=== PATIENT | male | born 1945 | race Caucasian/White ===

== ENCOUNTER 2017-07-11 12:10 | Emergency (ER) | payer OTHER ==
[~2017-07-11] VITALS: Ht 182.9 cm; Wt 65.8 kg
[2017-07-11] MEDS ORDERED: KEFLEX500 MG PO (14:37)
[2017-07-11 14:45] VITALS: BP 132/74
[2017-07-11] MEDS ORDERED: NORVASC2.5 MG PO (20:57)
[2017-07-11] MEDS ORDERED: HYDROCHLOROTH12.5 M2 PO (20:57)
== END 2017-07-11 14:45 | disposition home or self-care (01) ==
LOC: ER 12:10
DX: L03.114 Cellulitis of left upper limb (principal)

== ENCOUNTER 2017-07-11 20:27 | Inpatient (IN) | payer OTHER ==
[~2017-07-11] VITALS: Ht 188 cm; Wt 73.7 kg
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
--- NOTE | ~2017-07-11 | HC ---
[facility] [place] [address] CONSULTATION Name: SUE DUPREE Room #: 362-P ADM IN M.R.#: [id number] Admission: 07/11/17 Attend Phys: Jaylen James MD Discharge: Date of : 49 Report #: [id number] THIS REPORT FOR: //name// CC: Jaylen James DATE OF SERVICE: 07/12/2017 CHIEF COMPLAINT: Swelling in the left hand. HISTORY OF PRESENT ILLNESS: The patient is a poor historian, but according to the H and P, he presented to the emergency room around noon yesterday for swelling in the left hand, was thought to have upym-my-taxawsrn cellulitis, given prescription for cephalexin and discharged to home. He returned to the emergency department later last night with the same complaint and worsening symptoms. At this point, he was accompanied by a female friend. At this point, he was felt to have more significant cellulitis and swelling of his left hand and was admitted. He has since been on IV vancomycin. The patient reports hand swelling, but not much pain. He is a very poor historian and is unable to report any recent injury to the left hand, but thinks that his hand has been swollen for about 3-4 days now. PAST MEDICAL HISTORY: Limited due to that he is a poor historian and task. Per H and P, history of a knee scope 20 years ago and hypertension. SOCIAL HISTORY: The patient drinks alcohol approximately 4-8 beers per day. He rarely drinks other forms of alcohol. Denies cigarette smoking or drug abuse. He is and is currently living in an apartment. ALLERGIES: No known drug allergies. MEDICATIONS: Please see medical record, but include hydrochlorothiazide, amlodipine, and vancomycin. PHYSICAL EXAMINATION: GENERAL: The patient is awake, currently in no acute distress. VITAL SIGNS: Temperature 36.5 degrees Celsius, blood pressure 129/76, and pulse rate 66. EXTREMITIES: Left upper extremity shows edema and erythema in the left hand, most noticeable in the dorsum of the hand. There is mild erythema extending into the forearm, but no significant edema in this area. The patient is unable to make a fist due to swelling in hand and fingers. There is tenderness to palpation over the dorsum of the left wrist. No tenderness to palpation of the fingers or palmar aspect of the wrist. There are 2 small abrasions on the dorsum of the hands that appeared to be healing well with no drainage noted from these. These small abrasions are 2-3 mm in length with no increased [place] [address] CONSULTATION Name: SUE DUPREE Room #: 362-P [facility] IN M.R.#: [id number] Admission: 07/11/17 Attend Phys: Jaylen James MD Discharge: Date of : 49 Report #: [id number] LABORATORY DATA: Hemoglobin 13.6. Sodium 135, potassium 3.3, glucose 116, albumin 3.0, ALT 21, and total bilirubin 1.4. IMPRESSION: 1. Cellulitis of the left hand. 2. Toxic encephalopathy with impaired recent memory. 3. History of hypertension, substantial alcohol use, severe malnutrition. 4. Hyponatremia, hypokalemia, and volume depletion. PLAN: Discussed with the patient that he appears to have cellulitis of the left hand; however, I did not notice any localized abscesses or fluid pockets based on examination. However, we have ordered x-rays of the left hand and if these are normal, we may obtain an MRI for further evaluation to rule out any localized abscesses that could require surgical drainage. At this point, we would continue with IV antibiotics per medicine team and we will await results of the x-rays and pending blood cultures. <ELECTRONICALLY SIGNED> By: ARLENE Reza 07/14/17 0833 [id number] ARLENE Reza /nt
--- NOTE | ~2017-07-11 | HC ---
[facility] [place] [address] CONSULTATION Name: SUE DUPREE Room #: 362-P [facility] IN M.R.#: [id number] Admission: 07/11/17 Attend Phys: Jaylen James MD Discharge: Date of : 49 Report #: [id number] THIS REPORT FOR: //name// CC: Jaylen James REASON FOR CONSULTATION: I was asked to evaluate concerning left hand and forearm soft tissue infection and cellulitis. HISTORY OF PRESENT ILLNESS: The patient is a 71-year-old who initially presented to the Emergency Room on 07/11/2017 with left hand pain, swelling with onset earlier in the morning. Having a significant amount of pain. Examination at that time showed erythema and small puncture wounds to the dorsum of his left hand, both on the dorsal surface and lateral aspect. He had good range of motion. Good perfusion distally. Was started on cephalexin and instructed to use ibuprofen and warm compresses to the hand. He returned 6 hours later with increased pain and redness. His girlfriend brought him back to the hospital. No documented fever, chills or sweats. Still is having a significant amount of pain and redness that went up to his forearm. No specific trauma had been reported. He was, however, the day before helping one of his friends' takedown some furniture. The patient does drink significantly. He was unable to give me a reasonable history. His significant other was able to add much insight into his condition. He does drink heavily and noticed a definite decline mentally over the last year or so. ALLERGIES: None known. MEDICATIONS: Hydrochlorothiazide, amlodipine. PAST MEDICAL HISTORY: Hypertension. SOCIAL HISTORY: Nonsmoker. Significant alcohol intake. He is retired from insurance sales; lives on his own in an apartment, does have children and a girlfriend that are available to assist. REVIEW OF SYSTEMS: No cardiopulmonary, GI or complaints. PHYSICAL EXAMINATION: VITAL SIGNS: Afebrile, hemodynamically stable. GENERAL: He is alert and cooperative. He was confused. HEENT: Unremarkable. NECK: Supple. LUNGS: Clear. HEART: Regular without murmur. ABDOMEN: Soft and nontender. No hepatosplenomegaly or mass. EXTREMITIES: Left upper extremity had a 2+ edema involving the hand, mostly over the dorsum surface with erythema extending from the hand up to the proximal forearm. No tender or adenopathy in the axilla. Pulses in the wrist were [facility] [address] [place] [address] CONSULTATION Name: SUE DUPREE Room #: 362-P [facility] IN ..#: [id number] Admission: 07/11/17 Attend Phys: Jaylen James MD Discharge: Date of : 49 Report #: [id number] normal. Capillary refill in the fingers normal. Sensation intact. Most of his tenderness was over the dorsal lateral aspect of the hand. This was in the area toward the wrist. He had mild limitation in his range of motion due to his discomfort. LABORATORY STUDIES: Vancomycin trough was 9. Blood cultures are negative today. Hemoglobin 13.5, WBC 9.4, platelet count 230,000; 80% segs, no bands. Sodium 135, potassium 3.6, bicarbonate 21, creatinine 0.7. Bilirubin 1.6, alkaline phosphatase 54, ALT 18, albumin at 2.7. MRI scan of the hand, prominent dorsal soft tissue swelling and edema throughout. No focal fluid collection to suggest abscess. No bony abnormalities or evidence of tendinitis or arthritis. IMPRESSION: A 71-year-old with soft tissue infection, left hand, with associated cellulitis. He had several excoriations to the hand, which I suspect are the entry source. Staphylococcus and streptococcus would be most likely organisms. In addition, the patient has delirium and I am suspecting some underlying dementia. Recommend IV antibiotic therapy, elevation of the hand and apply heat. We will monitor for development of soft tissue abscess. We will screen for methicillin resistant Staphylococcus aureus. He has had a CAT scan of his head, which showed atrophy. <ELECTRONICALLY SIGNED> By: Corbin Gonzalez MD 07/14/17 1012 [id number] 0 Corbin Gonzalez MD /nt
[~2017-07-11 20:27] MED LIST: KEFLEX500 MG PO
[2017-07-11 20:28] VITALS: BP 148/95
[2017-07-11] MEDS ORDERED: HYDROCHLOROTH12.5 M2 PO (20:57)
[2017-07-11] MEDS ORDERED: NORVASC2.5 MG PO (20:57)
[2017-07-11 21:30] LABS: HEMATOCRIT 43.1 % (42.0-52.0); HEMOGLOBIN 14.8 gm/dL (14.0-18.0); MCH 31.7 pg (26.0-34.0); MCHC 34.3 g/dL (28.0-37.0); MCV 92.7 fL (80.0-100.0); PLATELET COUNT 264 thou/uL (150-400); RBC 4.65 mil/uL (4.50-6.00); RDW 13.9 % (10.5-14.5); WBC 11.4 thou/uL (4.0-11.0)
[2017-07-11 21:37] LABS: CALCIUM 9.3 mg/dL (8.5-10.1); CREATININE 0.9 mg/dL (0.7-1.3); MANUAL DIFF YES; POTASSIUM 3.3 mmol/L (3.5-5.1)
[2017-07-11 21:43] LABS: ALBUMIN 3.7 g/dL (3.4-5.0); TOTAL BILIRUBIN 1.1 mg/dL (<0.1-1.0); TOTAL PROTEIN 7.5 g/dL (6.4-8.2)
[2017-07-11 21:48] LABS: URINE BILIRUBIN NEGATIVE (Negative); URINE BLOOD TRACE (Negative); URINE COLOR YELLOW; URINE GLUCOSE-RANDOM* NEGATIVE (Negative); URINE KETONES NEGATIVE (Negative); URINE LEUKOCYTES-REFLEX NEGATIVE (Negative); URINE PROTEIN (DIPSTICK) NEGATIVE (Negative); URINE SPECIFIC GRAVITY <= 1.005 (1.003-1.035); URINE UROBILINOGEN 0.2 E.U./dl (0.2-1.0)
[2017-07-11 21:56] LABS: AMP/METHAMP Negative (Negative); BARBITURATES Negative (Negative); BENZODIAZEPINES Negative (Negative); COCAINE Negative (Negative); METHADONE Negative (Negative); OPIATES Negative (Negative); PCP Negative (Negative); THC Negative (Negative)
[2017-07-11 21:57] LABS: ABSOLUTE NEUTROPHILS 9.8 thou/uL (1.4-8.2); ANISOCYTOSIS 1+; TOTAL CELL COUNT 100
[2017-07-11 23:09] VITALS: BP 143/70
[2017-07-11 23:28] VITALS: BP 152/77
[2017-07-12 00:05] VITALS: BP 145/81
[2017-07-12 04:00] VITALS: BP 140/83
[2017-07-12 07:37] LABS: HEMATOCRIT 40.1 % (42.0-52.0); HEMOGLOBIN 13.6 gm/dL (14.0-18.0); MCH 31.8 pg (26.0-34.0); MCHC 33.8 g/dL (28.0-37.0); MCV 94.1 fL (80.0-100.0); RBC 4.26 mil/uL (4.50-6.00); RDW 13.7 % (10.5-14.5); WBC 10.8 thou/uL (4.0-11.0)
[2017-07-12 07:54] LABS: CALCIUM 8.3 mg/dL (8.5-10.1); CREATININE 0.6 mg/dL (0.7-1.3); POTASSIUM 3.3 mmol/L (3.5-5.1); TOTAL BILIRUBIN 1.4 mg/dL (<0.1-1.0); TOTAL PROTEIN 6.4 g/dL (6.4-8.2)
[2017-07-12 08:03] VITALS: BP 129/76
[2017-07-12 15:00] VITALS: BP 126/71
[2017-07-12 19:40] VITALS: BP 142/82
[2017-07-12 23:25] VITALS: BP 123/68
[2017-07-13 06:07] VITALS: BP 132/70
[2017-07-13 06:19] LABS: HEMATOCRIT 39.3 % (42.0-52.0); HEMOGLOBIN 13.5 gm/dL (14.0-18.0); MCH 32.6 pg (26.0-34.0); MCHC 34.3 g/dL (28.0-37.0); MCV 95.3 fL (80.0-100.0); PLATELET COUNT 230 thou/uL (150-400); RBC 4.13 mil/uL (4.50-6.00); RDW 13.7 % (10.5-14.5); WBC 9.4 thou/uL (4.0-11.0)
[2017-07-13 06:23] LABS: MANUAL DIFF YES
[2017-07-13 06:43] LABS: ALBUMIN 2.7 g/dL (3.4-5.0); CALCIUM 8.3 mg/dL (8.5-10.1); CREATININE 0.7 mg/dL (0.7-1.3); MAGNESIUM 2.1 mg/dL (1.8-2.4); POTASSIUM 3.6 mmol/L (3.5-5.1); TOTAL BILIRUBIN 1.6 mg/dL (<0.1-1.0); TOTAL PROTEIN 6.2 g/dL (6.4-8.2)
[2017-07-13 08:28] LABS: ABSOLUTE NEUTROPHILS 7.5 thou/uL (1.4-8.2); TOTAL CELL COUNT 100
[2017-07-13 09:55] VITALS: BP 111/72
[2017-07-13 14:00] VITALS: BP 117/85
[2017-07-13 20:04] VITALS: BP 140/80
[2017-07-14 04:29] VITALS: BP 128/80
[2017-07-14 06:13] LABS: HEMATOCRIT 39.3 % (42.0-52.0); HEMOGLOBIN 13.4 gm/dL (14.0-18.0); MCH 32.4 pg (26.0-34.0); MCHC 34.2 g/dL (28.0-37.0); MCV 94.7 fL (80.0-100.0); RBC 4.14 mil/uL (4.50-6.00); RDW 13.7 % (10.5-14.5)
[2017-07-14 06:36] LABS: CALCIUM 8.7 mg/dL (8.5-10.1); CREATININE 0.8 mg/dL (0.7-1.3); POTASSIUM 3.7 mmol/L (3.5-5.1)
[2017-07-14 08:45] VITALS: BP 155/89
[2017-07-14 15:09] LABS: HIV ANTIBODY Non Reactive (Non Reactive)
[2017-07-14 15:35] VITALS: BP 155/92
[2017-07-14 17:12] LABS: HEPATITIS C VIRUS AB <0.1 (0.0-0.9)
[2017-07-14 20:00] VITALS: BP 134/92
[2017-07-15 04:00] VITALS: BP 120/79
[2017-07-15 12:01] VITALS: BP 135/83
[2017-07-15 15:14] VITALS: BP 125/93
[2017-07-15 20:00] VITALS: BP 156/92
[2017-07-16] VITALS (7 sets, daily range): BP systolic 137–156; BP diastolic 64–96
[2017-07-17 04:41] LABS: HEMATOCRIT 42.7 % (42.0-52.0); HEMOGLOBIN 14.4 gm/dL (14.0-18.0); MCH 31.9 pg (26.0-34.0); MCHC 33.8 g/dL (28.0-37.0); MCV 94.2 fL (80.0-100.0); RBC 4.53 mil/uL (4.50-6.00); RDW 13.8 % (10.5-14.5); WBC 8.2 thou/uL (4.0-11.0)
[2017-07-17 04:51] VITALS: BP 165/97
[2017-07-17 04:51] LABS: CREATININE 0.9 mg/dL (0.7-1.3); MAGNESIUM 1.9 mg/dL (1.8-2.4); POTASSIUM 3.8 mmol/L (3.5-5.1)
[2017-07-17 09:36] VITALS: BP 132/82
[2017-07-17 14:22] VITALS: BP 134/83
[2017-07-17 17:34] VITALS: BP 146/92
[2017-07-17 20:00] VITALS: BP 148/99
[2017-07-18 04:00] VITALS: BP 162/83
[2017-07-18 07:48] VITALS: BP 161/89
[2017-07-18 20:30] VITALS: BP 150/88
[2017-07-19 05:50] VITALS: BP 114/62
[2017-07-19 10:14] VITALS: BP 128/73
[2017-07-19 16:40] VITALS: BP 133/76
[2017-07-19 21:25] VITALS: BP 119/76
[2017-07-20 05:00] VITALS: BP 104/58
[2017-07-20 09:10] VITALS: BP 126/74
[2017-07-20 13:41] VITALS: BP 023/67
[2017-07-20 21:00] VITALS: BP 139/77
[2017-07-21 05:10] VITALS: BP 123/64
[2017-07-21 08:56] VITALS: BP 136/75
[2017-07-21 12:10] VITALS: BP 124/72
[2017-07-21 17:12] VITALS: BP 129/83
[2017-07-22 04:15] VITALS: BP 130/77
[2017-07-22 06:34] LABS: CALCIUM 9.2 mg/dL (8.5-10.1); CREATININE 0.9 mg/dL (0.7-1.3); MAGNESIUM 2.2 mg/dL (1.8-2.4); POTASSIUM 3.8 mmol/L (3.5-5.1)
[2017-07-22 07:14] LABS: HEMATOCRIT 39.7 % (42.0-52.0); HEMOGLOBIN 13.3 gm/dL (14.0-18.0); MCH 31.6 pg (26.0-34.0); MCHC 33.4 g/dL (28.0-37.0); MCV 94.4 fL (80.0-100.0); RBC 4.2 mil/uL (4.50-6.00); RDW 13.5 % (10.5-14.5); WBC 7.1 thou/uL (4.0-11.0)
[2017-07-22 08:00] VITALS: BP 143/91
[2017-07-22 16:00] VITALS: BP 114/74
[2017-07-22 20:10] VITALS: BP 127/70
[2017-07-23 05:00] VITALS: BP 153/84
[2017-07-23 08:40] LABS: FOLIC ACID 14.4 ng/mL (8.6-58.9); TSH 0.748 uIU/mL (0.358-3.740)
[2017-07-23 09:03] VITALS: BP 153/85
[2017-07-23 12:26] VITALS: BP 129/75
[2017-07-23 15:06] LABS: FREE T3 2.5 pg/mL (2.0-4.4); FREE T4 1.36 ng/dL (0.82-1.77)
[2017-07-23 16:58] VITALS: BP 145/80
== END 2017-07-23 19:13 | disposition left against medical advice (07) | DRG 91 ==
LOC: ER 20:27 → 4E 22:53 → 3W 22:53 → EROBS 22:53 → 4E 23:24 → 3W 07-12 19:18
PROVIDERS: Internal Medicine; Physician Assistant; Specialist
DX: G92 Toxic encephalopathy (principal); E43 Unspecified severe protein-calorie malnutrition; L03.114 Cellulitis of left upper limb; E87.1 Hypo-osmolality and hyponatremia; F10.231 Alcohol dependence with withdrawal delirium; E87.6 Hypokalemia; I73.00 Raynaud's syndrome without gangrene; G31.84 Mild cognitive impairment of uncertain or unknown etiology; I10 Essential (primary) hypertension; Y90.9 Presence of alcohol in blood, level not specified; E86.0 Dehydration; G31.2 Degeneration of nervous system due to alcohol; T42.4X5A Adverse effect of benzodiazepines, initial encounter; Y92.89 Other specified places as the place of occurrence of the external cause; Z68.20 Body mass index [BMI] 20.0-20.9, adult
CPT/HCPCS: 10183; 10779